=== PATIENT | male | born 1945 | race Caucasian/White ===

== ENCOUNTER 2022-02-17 10:02 | Inpatient (IN) | payer MEDICARE ==
[2022-02-17 12:00] VITALS: BP 151/89
[2022-02-17] MEDS ORDERED: FLUT16H NASAL (12:10)
[2022-02-17] MEDS ORDERED: HYDR-4068 PO (12:10)
[2022-02-17 12:19] LABS: HEMATOCRIT 44.4 % (42-54); MEAN CORPUSCULAR HEMOGLOBIN 29.4 pg (27.0-33.0); MEAN CORPUSCULAR HGB CONC 33.6 g/dL (32.0-36.0); MEAN CORPUSCULAR VOLUME 87.6 fL (79-99); RED BLOOD CELL COUNT(AUTO) 5.07 MIL/uL (4.50-6.20); RED CELL DISTRIBUTION WIDTH 12.7 % (11.0-15.5)
[2022-02-17 12:41] LABS: ALBUMIN 3.2 g/dL (3.5-5.0); CREATININE 1.2 mg/dL (0.5-1.5); POTASSIUM 4.1 mmol/L (3.5-5.1); TOTAL PROTEIN, SERUM 6.7 g/dL (6.0-8.3)
[2022-02-17] MEDS ORDERED: MORPHINE 4 MG SYG ONE (12:47)
[2022-02-17] MEDS ORDERED: ONDANSETRON 4MG INJ IV PRN (13:00)
[2022-02-17] MEDS ORDERED: HYDROMORPHONE 0.5 MG SYG (0.5MG/0.5ML) IVP PRN (13:00)
[2022-02-17] MEDS ORDERED: NITROGLYCERIN 0.4 MG SL TAB SL PRN (13:00)
[2022-02-17] MEDS ORDERED: ACETAMINOPHEN 325 MG TAB PO PRN ×2 (13:00)
[2022-02-17] MEDS ORDERED: BISACODYL 5 MG TABLET.DR PO PRN (13:00)
[2022-02-17 13:20] LABS: HEMOGLOBIN A1C 5.9 % (4.0-6.0)
[2022-02-17 13:25] LABS: MAGNESIUM 2.1 mg/dL (1.80-2.40); PHOSPHORUS 4.6 mg/dL (2.5-4.9)
[2022-02-17] MEDS: HYDROMORPHONE 0.5 MG SYG (0.5MG/0.5ML) IVP PRN ×2 (14:57→19:57)
[2022-02-17 16:00] VITALS: BP 135/78
[2022-02-17 19:00] VITALS: BP 117/72
[2022-02-17] MEDS: SILVER SULFADIAZINE CREAM 400 GM TP SCH (21:00)
[2022-02-17] MEDS: BALSAM PERU/CASTOR OIL 60 GM TUBE TP SCH (21:00)
[2022-02-17] MEDS: FAMOTIDINE 20MG TAB PO SCH (21:06)
[2022-02-17 23:49] VITALS: BP 133/61
[2022-02-18] MEDS: HYDROMORPHONE 0.5 MG SYG (0.5MG/0.5ML) IVP PRN ×6 (00:16→21:11)
[2022-02-18] MEDS ORDERED: DONE5TAB33 PO (02:43)
[2022-02-18] MEDS ORDERED: CITA-106 PO (02:43)
[2022-02-18] MEDS ORDERED: FINA5TAB41 PO (02:43)
[2022-02-18] MEDS ORDERED: FLUO40CA49 PO (02:43)
[2022-02-18] MEDS ORDERED: QUET25TA36 PO (02:43)
[2022-02-18] MEDS ORDERED: ASPI-1197 PO (02:43)
[2022-02-18] MEDS ORDERED: ZOLP5TAB8 PO (02:43)
[2022-02-18] MEDS ORDERED: LISI20TA24 PO (02:43)
[2022-02-18] MEDS ORDERED: ATOR40TA71 PO (02:43)
[2022-02-18 04:00] VITALS: BP 126/72
[2022-02-18 07:03] VITALS: BP 117/72
[2022-02-18] MEDS: BALSAM PERU/CASTOR OIL 60 GM TUBE TP SCH ×2 (09:28→20:50)
[2022-02-18] MEDS: ENOXAPARIN SODIUM 40 MG/0.4 ML SYRINGE SQ SCH (09:28)
[2022-02-18] MEDS: FAMOTIDINE 20MG TAB PO SCH ×2 (09:28→20:47)
[2022-02-18] MEDS: SILVER SULFADIAZINE CREAM 400 GM TP SCH ×2 (09:29→20:49)
[2022-02-18 11:48] VITALS: BP 120/69
[2022-02-18] MEDS ORDERED: BISACODYL 5 MG TABLET.DR PO PRN (13:30)
[2022-02-18] MEDS: CYCLOBENZAPRINE HCL 10 MG TABLET PO SCH ×2 (13:42→20:47)
[2022-02-18 13:45] LABS: ALBUMIN 2.9 g/dL (3.5-5.0); PHOSPHORUS 3.4 mg/dL (2.5-4.9); POTASSIUM 3.6 mmol/L (3.5-5.1)
[2022-02-18 13:54] LABS: MAGNESIUM 2.2 mg/dL (1.80-2.40); TOTAL PROTEIN, SERUM 6.5 g/dL (6.0-8.3)
[2022-02-18 13:56] LABS: BASOPHILS % (AUTO) 0.3 % (0.0-5.0); EOSINOPHILS % (AUTO) 2.2 % (0.0-8.0); HEMATOCRIT 44.4 % (42-54); LYMPHOCYTES % (AUTO) 26.4 % (21.0-51.0); MEAN CORPUSCULAR HEMOGLOBIN 29.2 pg (27.0-33.0); MEAN CORPUSCULAR HGB CONC 33.6 g/dL (32.0-36.0); MEAN CORPUSCULAR VOLUME 87.1 fL (79-99); MONOCYTES % (AUTO) 16.8 % (3.0-13.0); NEUTROPHILS % (AUTO) 53.8 % (40.0-77.0); PLATELET COUNT (AUTO) 210 K/uL (130-400); RED CELL DISTRIBUTION WIDTH 12.5 % (11.0-15.5)
[2022-02-18 16:00] VITALS: BP 121/72
[2022-02-18 20:00] VITALS: BP 125/73
[2022-02-18] MEDS: ZOLPIDEM TARTRATE 5 MG TAB PO SCH (20:47)
[2022-02-18] MEDS: QUETIAPINE FUMARATE 25 MG TAB PO SCH (20:47)
[2022-02-18] MEDS: ATORVASTATIN 40 MG TABLET PO SCH (20:47)
[2022-02-19] VITALS: BP 142/78
[2022-02-19] MEDS: HYDROMORPHONE 0.5 MG SYG (0.5MG/0.5ML) IVP PRN ×4 (01:54→14:30)
[2022-02-19 04:53] VITALS: BP 127/69
[2022-02-19 07:02] VITALS: BP 131/81
[2022-02-19] MEDS: FLUTICASONE PROPIONATE 50MCG/SPRAY 16 GM BOTTLE EN SCH (09:00)
[2022-02-19] MEDS ORDERED: BISACODYL 5 MG TABLET.DR PO PRN (09:30)
[2022-02-19] MEDS: ASPIRIN 81MG CHEW TAB PO SCH (09:46)
[2022-02-19] MEDS: FAMOTIDINE 20MG TAB PO SCH ×2 (09:47→19:49)
[2022-02-19] MEDS: FLUOXETINE HCL 20 MG CAPSULE PO SCH (09:48)
[2022-02-19] MEDS: DONEPEZIL HCL 5 MG TAB PO SCH (09:50)
[2022-02-19] MEDS: CITALOPRAM 20 MG TABLET PO SCH (09:51)
[2022-02-19] MEDS: QUETIAPINE FUMARATE 25 MG TAB PO SCH ×2 (09:51→19:48)
[2022-02-19] MEDS: LISINOPRIL 20 MG TABLET PO SCH (09:52)
[2022-02-19] MEDS: ENOXAPARIN SODIUM 40 MG/0.4 ML SYRINGE SQ SCH (09:56)
[2022-02-19] MEDS: OXYCODONE HCL 10 MG TAB.SR.12H PO SCH ×2 (10:02→19:48)
[2022-02-19] MEDS: CYCLOBENZAPRINE HCL 10 MG TABLET PO SCH ×3 (10:02→19:48)
[2022-02-19] MEDS: SODIUM BICARB 8.4% 50ML SYRING 150 MEQ in DEXTROSE 5%-WATER 1,000 ML IV SCH ×2 (10:38→19:48)
[2022-02-19] MEDS: BALSAM PERU/CASTOR OIL 60 GM TUBE TP SCH ×2 (10:47→19:51)
[2022-02-19] MEDS: SILVER SULFADIAZINE CREAM 400 GM TP SCH ×2 (10:47→19:51)
[2022-02-19 12:02] VITALS: BP_SYST 132; BP_SYST 134; BP_DIAS 61; BP_DIAS 77
[2022-02-19] MEDS: GABAPENTIN 300 MG CAPSULE PO SCH ×2 (14:29→19:49)
[2022-02-19] MEDS: ZOLPIDEM TARTRATE 5 MG TAB PO SCH (19:49)
[2022-02-19] MEDS: ATORVASTATIN 40 MG TABLET PO SCH (19:49)
[2022-02-19 20:56] VITALS: BP 144/68
[2022-02-20 00:20] VITALS: BP 132/75
[2022-02-20] MEDS: HYDROMORPHONE 0.5 MG SYG (0.5MG/0.5ML) IVP PRN ×5 (03:24→22:41)
[2022-02-20 04:39] VITALS: BP 128/64
[2022-02-20 05:41] LABS: BASOPHILS % (AUTO) 0.7 % (0.0-5.0); EOSINOPHILS % (AUTO) 4.3 % (0.0-8.0); HEMATOCRIT 40.9 % (42-54); LYMPHOCYTES % (AUTO) 27.5 % (21.0-51.0); MEAN CORPUSCULAR HEMOGLOBIN 28.7 pg (27.0-33.0); PLATELET COUNT (AUTO) 201 K/uL (130-400); RED CELL DISTRIBUTION WIDTH 12.1 % (11.0-15.5); WHITE BLOOD COUNT (AUTO) 5.8 K/uL (4.8-10.8)
[2022-02-20 06:07] LABS: CREATININE 1.3 mg/dL (0.5-1.5); MAGNESIUM 2.5 mg/dL (1.80-2.40); POTASSIUM 4.1 mmol/L (3.5-5.1)
[2022-02-20 08:00] VITALS: BP 126/82
[2022-02-20] MEDS: FLUTICASONE PROPIONATE 50MCG/SPRAY 16 GM BOTTLE EN SCH (08:09)
[2022-02-20] MEDS: LISINOPRIL 20 MG TABLET PO SCH (08:10)
[2022-02-20] MEDS: DONEPEZIL HCL 5 MG TAB PO SCH (08:10)
[2022-02-20] MEDS: FAMOTIDINE 20MG TAB PO SCH ×2 (08:10→20:46)
[2022-02-20] MEDS: CYCLOBENZAPRINE HCL 10 MG TABLET PO SCH ×3 (08:11→20:45)
[2022-02-20] MEDS: GABAPENTIN 300 MG CAPSULE PO SCH ×3 (08:11→20:46)
[2022-02-20] MEDS: QUETIAPINE FUMARATE 25 MG TAB PO SCH ×2 (08:11→20:46)
[2022-02-20] MEDS: FLUOXETINE HCL 20 MG CAPSULE PO SCH (08:12)
[2022-02-20] MEDS: ASPIRIN 81MG CHEW TAB PO SCH (08:12)
[2022-02-20] MEDS: CITALOPRAM 20 MG TABLET PO SCH (08:16)
[2022-02-20] MEDS: ENOXAPARIN SODIUM 40 MG/0.4 ML SYRINGE SQ SCH (08:23)
[2022-02-20] MEDS: OXYCODONE HCL 10 MG TAB.SR.12H PO SCH (09:00)
[2022-02-20] MEDS: SODIUM BICARB 8.4% 50ML SYRING 150 MEQ in DEXTROSE 5%-WATER 1,000 ML IV SCH ×2 (10:11→20:45)
[2022-02-20 12:00] VITALS: BP 113/66
[2022-02-20] MEDS: BALSAM PERU/CASTOR OIL 60 GM TUBE TP SCH ×2 (12:25→22:45)
[2022-02-20] MEDS: SILVER SULFADIAZINE CREAM 400 GM TP SCH ×2 (12:25→22:45)
[2022-02-20 16:00] VITALS: BP 123/72
[2022-02-20] MEDS ORDERED: BENZOCAINE/MENTH/CETYLPYRD CL 1 EACH LOZENGE MM PRN (16:30)
[2022-02-20 19:00] VITALS: BP 128/64
[2022-02-20] MEDS: ZOLPIDEM TARTRATE 5 MG TAB PO SCH (20:46)
[2022-02-20] MEDS: ATORVASTATIN 40 MG TABLET PO SCH (20:46)
[2022-02-21] VITALS (7 sets, daily range): BP systolic 129–154; BP diastolic 60–80
[2022-02-21 04:39] LABS: BASOPHILS % (AUTO) 0.5 % (0.0-5.0); EOSINOPHILS % (AUTO) 4.2 % (0.0-8.0); HEMATOCRIT 40.7 % (42-54); MEAN CORPUSCULAR HEMOGLOBIN 29.4 pg (27.0-33.0); MEAN CORPUSCULAR HGB CONC 33.2 g/dL (32.0-36.0); MEAN CORPUSCULAR VOLUME 88.7 fL (79-99); MONOCYTES % (AUTO) 13.7 % (3.0-13.0); NEUTROPHILS % (AUTO) 62.1 % (40.0-77.0); PLATELET COUNT (AUTO) 205 K/uL (130-400); RED BLOOD CELL COUNT(AUTO) 4.59 MIL/uL (4.50-6.20); RED CELL DISTRIBUTION WIDTH 12.1 % (11.0-15.5); WHITE BLOOD COUNT (AUTO) 6.4 K/uL (4.8-10.8)
[2022-02-21 04:56] LABS: CREATININE 1.1 mg/dL (0.5-1.5); POTASSIUM 4.3 mmol/L (3.5-5.1)
[2022-02-21] MEDS: SODIUM BICARB 8.4% 50ML SYRING 150 MEQ in DEXTROSE 5%-WATER 1,000 ML IV SCH ×2 (07:00→17:11)
[2022-02-21] MEDS: CITALOPRAM 20 MG TABLET PO SCH (08:05)
[2022-02-21] MEDS: QUETIAPINE FUMARATE 25 MG TAB PO SCH ×2 (08:06→20:52)
[2022-02-21] MEDS: CYCLOBENZAPRINE HCL 10 MG TABLET PO SCH ×3 (08:06→20:52)
[2022-02-21] MEDS: FAMOTIDINE 20MG TAB PO SCH ×2 (08:06→20:52)
[2022-02-21] MEDS: GABAPENTIN 300 MG CAPSULE PO SCH ×3 (08:07→20:52)
[2022-02-21] MEDS: DONEPEZIL HCL 5 MG TAB PO SCH (08:07)
[2022-02-21] MEDS: ASPIRIN 81MG CHEW TAB PO SCH (08:07)
[2022-02-21] MEDS: LISINOPRIL 20 MG TABLET PO SCH (08:08)
[2022-02-21] MEDS: FLUOXETINE HCL 20 MG CAPSULE PO SCH (08:08)
[2022-02-21] MEDS: ENOXAPARIN SODIUM 40 MG/0.4 ML SYRINGE SQ SCH (08:09)
[2022-02-21] MEDS: FLUTICASONE PROPIONATE 50MCG/SPRAY 16 GM BOTTLE EN SCH (08:10)
[2022-02-21] MEDS: GUAIFENESIN-DM 200/20 MG 10 ML PO PRN ×2 (08:11→19:06)
[2022-02-21] MEDS: HYDROMORPHONE 0.5 MG SYG (0.5MG/0.5ML) IVP PRN (08:13)
[2022-02-21] MEDS: SILVER SULFADIAZINE CREAM 400 GM TP SCH (09:00)
[2022-02-21] MEDS: OXYCODONE HCL 10 MG TAB.SR.12H PO SCH (09:00)
[2022-02-21] MEDS: BALSAM PERU/CASTOR OIL 60 GM TUBE TP SCH (09:00)
[2022-02-21] MEDS ORDERED: HYDROCODONE/ACETAMINOPHEN 5/325 MG TAB PO PRN (19:30)
[2022-02-21] MEDS: ZOLPIDEM TARTRATE 5 MG TAB PO SCH (20:52)
[2022-02-21] MEDS: ATORVASTATIN 40 MG TABLET PO SCH (20:52)
[2022-02-22 01:02] VITALS: BP 143/68
[2022-02-22 04:29] VITALS: BP 172/83
[2022-02-22 04:34] LABS: BASOPHILS % (AUTO) 0.5 % (0.0-5.0); HEMATOCRIT 42.4 % (42-54); LYMPHOCYTES % (AUTO) 22.9 % (21.0-51.0); MEAN CORPUSCULAR HEMOGLOBIN 29.1 pg (27.0-33.0); MEAN CORPUSCULAR HGB CONC 32.8 g/dL (32.0-36.0); MEAN CORPUSCULAR VOLUME 88.7 fL (79-99); MONOCYTES % (AUTO) 11.8 % (3.0-13.0); NEUTROPHILS % (AUTO) 58.1 % (40.0-77.0); PLATELET COUNT (AUTO) 207 K/uL (130-400); RED BLOOD CELL COUNT(AUTO) 4.78 MIL/uL (4.50-6.20); WHITE BLOOD COUNT (AUTO) 5.7 K/uL (4.8-10.8)
[2022-02-22 04:59] LABS: CREATININE 1.1 mg/dL (0.5-1.5); POTASSIUM 4.1 mmol/L (3.5-5.1)
[2022-02-22 07:04] VITALS: BP 160/77
[2022-02-22] MEDS: ASPIRIN 81MG CHEW TAB PO SCH (08:59)
[2022-02-22] MEDS: FLUOXETINE HCL 20 MG CAPSULE PO SCH (08:59)
[2022-02-22] MEDS: CYCLOBENZAPRINE HCL 10 MG TABLET PO SCH ×2 (08:59→14:38)
[2022-02-22] MEDS: CITALOPRAM 20 MG TABLET PO SCH (09:00)
[2022-02-22] MEDS: GABAPENTIN 300 MG CAPSULE PO SCH ×2 (09:00→14:38)
[2022-02-22] MEDS: LISINOPRIL 20 MG TABLET PO SCH (09:01)
[2022-02-22] MEDS: FAMOTIDINE 20MG TAB PO SCH (09:01)
[2022-02-22] MEDS: DONEPEZIL HCL 5 MG TAB PO SCH (09:01)
[2022-02-22] MEDS: QUETIAPINE FUMARATE 25 MG TAB PO SCH (09:01)
[2022-02-22] MEDS: FLUTICASONE PROPIONATE 50MCG/SPRAY 16 GM BOTTLE EN SCH (09:02)
[2022-02-22] MEDS: SILVER SULFADIAZINE CREAM 400 GM TP SCH (09:02)
[2022-02-22] MEDS: BALSAM PERU/CASTOR OIL 60 GM TUBE TP SCH (09:02)
[2022-02-22] MEDS: ENOXAPARIN SODIUM 40 MG/0.4 ML SYRINGE SQ SCH (09:06)
[2022-02-22] MEDS: OXYCODONE HCL 10 MG TAB.SR.12H PO SCH (09:35)
[2022-02-22 12:05] VITALS: BP 137/75
[2022-02-22] MEDS ORDERED: SILV25CR23 TP (16:00)
[2022-02-22 16:08] VITALS: BP 130/70
== END 2022-02-22 19:00 | disposition home health service (06) | DRG 935 ==
LOC: OBSVTOIN 10:18 → 3AH 10:18 → INTOOBSV 10:18
PROVIDERS: ADMIT Internal Medicine; ATTEND Internal Medicine
PROC: 5A09357 Assistance with Respiratory Ventilation, Less than 24 Consecutive Hours, Continuous Positive Airway Pressure (ICD-10-PCS; principal; 2022-02-17)
PROC: 5A09357 Assistance with Respiratory Ventilation, Less than 24 Consecutive Hours, Continuous Positive Airway Pressure (ICD-10-PCS; 2022-02-18)
PROC: 5A09357 Assistance with Respiratory Ventilation, Less than 24 Consecutive Hours, Continuous Positive Airway Pressure (ICD-10-PCS; 2022-02-21)
PROC: 5A09357 Assistance with Respiratory Ventilation, Less than 24 Consecutive Hours, Continuous Positive Airway Pressure (ICD-10-PCS; 2022-02-22)
DX: T23.202A Burn of second degree of left hand, unspecified site, initial encounter (principal); L03.818 Cellulitis of other sites; M62.82 Rhabdomyolysis; I10 Essential (primary) hypertension; E66.9 Obesity, unspecified; T24.201A Burn of second degree of unspecified site of right lower limb, except ankle and foot, initial encounter; T24.202A Burn of second degree of unspecified site of left lower limb, except ankle and foot, initial encounter; F32.A Depression, unspecified; F41.9 Anxiety disorder, unspecified; G47.00 Insomnia, unspecified; T23.201A Burn of second degree of right hand, unspecified site, initial encounter; E78.5 Hyperlipidemia, unspecified; E86.1 Hypovolemia; G25.3 Myoclonus; G89.29 Other chronic pain; K59.00 Constipation, unspecified; N40.0 Benign prostatic hyperplasia without lower urinary tract symptoms; Z87.891 Personal history of nicotine dependence; Z79.899 Other long term (current) drug therapy; Y93.89 Activity, other specified; Y92.89 Other specified places as the place of occurrence of the external cause; Y99.8 Other external cause status
CPT/HCPCS: 36415; 73501; 80048; 80053; 82550; 83036; 83735; 83874; 84100; 84145; 85025; 85027; 97039; G0378; J1170; J1650; J2270; J3490; J7070